=== PATIENT | male | born 1990 | race Caucasian/White ===

== ENCOUNTER 2021-08-14 14:39 | Emergency (ER) | payer OTHER, SELFPAY ==
--- NOTE | ~2021-08-14 | XR_ITS ---
EXAMINATION: XR abdomen obstructive series DATE: 08/14/2021 15:12 INDICATION: Epigastric abdominal pain. TECHNIQUE: Upright and supine views of the abdomen were obtained. COMPARISON: None. FINDINGS: There are no dilated loops of bowel. There is a small volume of stool in the colon. No free intraperitoneal gas. IMPRESSION: 1. Normal bowel gas pattern. Reviewed, dictated and finalized at location A. CIATE SOFTWARE ENGINEER
[2021-08-14 14:50] VITALS: BP 147/56; PULSE 59; RESP 16; TEMP 36.4; O2SAT 99
--- NOTE | 2021-08-14 14:54 | ED.ABDPAIN ---
HPI - Abdominal Pain General Chief Complaint: Abdominal Pain Stated Complaint: Stomach pain Time Seen by Provider: 08/14/21 14:54 Source: patient Mode of arrival: ambulatory Limitations: no limitations History of Present Illness HPI narrative: 31 yo M presents with c/o intermittent epigastric pain for 3 to 4 days. Has tried pepto bismol with no relief. Has been able to eat and drink without pain. states pain is just random . today started while at work so he left and came here. No N/V. Having normal BMs. No urinary complaints. Ambulatory with steady gait. does not appear to be in any distress. All systems reviewed and negative except as noted above. Related Data Allergies Allergy/AdvReac Type Severity Reaction Status Date / Time No Known Allergies Allergy Verified 08/14/21 15:05 Review of Systems Review of Systems: CONSTITUTIONAL: Denies fever, chills, or sweats. EYES: Denies visual changes, redness, or discharge. ENT: Denies rhinorrhea, congestion, sore throat, or otalgia. CARDIOVASCULAR: Denies chest pain, palpitations, or edema. RESPIRATORY: Denies cough or dyspnea. GASTROINTESTINAL: Reports abdominal pain. denies nausea, vomiting, or diarrhea. GENITOURINARY: Denies dysuria or hematuria. SKIN: Denies rash or itching. MUSCULOSKELETAL: Denies back pain, joint pain, or myalgia. NEUROLOGIC: Denies headache, numbness, or weakness. PSYCHIATRIC: Denies anxiety or depression. All other systems reviewed are negative, except as documented in HPI. PMFSH Comments At time of signature, agree with nursing past medical, surgical, social and family history. There is no relevant family history pertinent to the presenting complaint. Exam Narrative: GENERAL: This is a well-nourished, well-developed patient, in no apparent distress. HEAD: normocephalic, atraumatic. EYES: PERRL. Sclera clear/white. Vision is grossly intact. EARS: External ears normal, auditory canals clear and without drainage, TMs normal without perforation. Hearing grossly intact. NOSE: External nose normal with no obvious nasal discharge, nares without redness, no rhinorrhea. THROAT: Mucous membranes moist, posterior pharynx clear. NECK: Neck supple, non-tender without lymphadenopathy, masses or thyromegaly. CARDIOVASCULAR: Regular rate and rhythm without murmurs, gallops, or rubs. RESPIRATORY: Clear to auscultation. Breath sounds equal bilaterally. No wheezes, rales, or rhonchi. GASTROINTESTINAL: Abdomen soft, nondistended. Bowel sounds are active. No hepato-splenomegaly, or palpable masses. No guarding. Epigastric tenderness. No rebound tenderness. SKIN: warm, Dry, intact with no suspicious lesions or rash, good texture and turgor. NEURO: awake, alert, and oriented to person, place and time. There were no obvious focal neurologic abnormalities. EXTREMITIES: No joint tenderness, effusion, or edema noted. No calf tenderness. Negative Homans sign bilaterally. BACK: Nontender without deformity. No CVA tenderness. Course Course Level of Care: Express Care Visit Vital Signs Vital signs: Vital Signs Temperature 36.4 C 08/14/21 14:50 Pulse Rate 59 L 08/14/21 14:50 Respiratory Rate 16 08/14/21 14:50 Blood Pressure 147/56 H 08/14/21 14:50 Pulse Oximetry 99 08/14/21 14:50 Temperature 36.4 C 08/14/21 14:50 Pulse Rate 59 L 08/14/21 14:50 Respiratory Rate 16 08/14/21 14:50 Blood Pressure 147/56 H 08/14/21 14:50 Pulse Oximetry 99 08/14/21 14:50 Reviewed MDM - Abdominal Pain MDM Narrative Medical decision making narrative: Negative UA. Normal ABD series. pt having epigastric tenderness. recommend he transfer to ER for further evaluation. pt states pain really not that bad, not having other symptoms, didnt eat today and maybe just hungry . requesting work note. states he doesnt have time to go to ER today. will DC with precautions to go to to ER for any worsening of symptoms. Imaging Data Attestation: I personally reviewed and interpreted this
== END 2021-08-14 15:35 | disposition home or self-care (01) ==
PROVIDERS: Emergency Provider Nurse Practitioner Family; PCP Internal Medicine Infectious Disease
DX: R10.13 Epigastric pain (principal)
CPT/HCPCS: 74019; 81003; 99213; G0463

== ENCOUNTER 2021-08-14 16:06 | Emergency (ER) | payer OTHER, SELFPAY ==
[2021-08-14] VITALS (13 sets, daily range): BP systolic 117–168; BP diastolic 68–114; PULSE 53–102; RESP 14–18; TEMP 36.6; O2SAT 97–100
--- NOTE | ~2021-08-14 | CT_ITS ---
EXAMINATION: CT abdomen pelvis w con DATE: 08/14/2021 17:38 INDICATION: Right lower quadrant pain for 3 days TECHNIQUE: Computed tomography (CT) of the abdomen and pelvis was performed with 100 cc Omnipaque 350 intravenous contrast. The dose-length product was 1120.21 mGy-cm. Automated exposure control and ite rative reconstruction technique were employed. COMPARISON: None. FINDINGS: Lung bases are unremarkable. Heart size normal. No significant pleural or pericardial effus ion. The liver, spleen, pancreas, adrenal glands and kidneys are unremarkable. No significant vascula r abnormality. No lymphadenopathy. There is segmental thickening of the distal small bowel with mucos al enhancement. There is mild colonic wall thickening of the proximal and transverse colon. No obstru ction. Small amount of free fluid in the pelvis. No free air. No localized fluid collections to sugge st abscess. Normal appendix. There is a urachal remnant of the bladder. IMPRESSION: 1. Mild mucosal thickening with enhancement of the distal small bowel and colon, suspicious for enter ocolitis. No obstruction. Reviewed, dictated and finalized at location A. ELECTRICAL ENGINEER IMPRESSION: 1. Mild mucosal thickening with enhancement of the distal small bowel and colon , suspicious for enterocolitis. No obstruction.
[2021-08-14] MEDS: MORPHINE SULFATE (*CRX) 4 MG/ML INJ IV PUSH (16:55)
[2021-08-14] MEDS: SODIUM CHLORIDE 0.9% IV 1,000 ML 999 ML IV CONT (16:55)
[2021-08-14 16:57] LABS: Basophils Percent Auto 0.2 % (0.2-1.2); Eosinophils Absolute Auto 0.2 K/mm3 (0-0.3); Eosinophils Percent Auto 1.4 % (0-4.4); Hematocrit 48.6 % (42.0-52.0); Immature Granulocyte Absolute 0.04 K/mm3 (0.00-0.031); Immature Granulocyte Percent A 0.4 % (0-0.5); Lymphocytes Absolute Auto 2.16 K/mm3 (0.9-3.2); Lymphocytes Percent Auto 19.7 % (18.3-44.2); Mean Corpuscular HGB Conc 32.9 g/dl (32-36); Mean Corpuscular Hemoglobin 29.9 pg (26-34); Mean Corpuscular Volume 90.7 fl (80-100); Mean Platelet Volume 10.5 fl (7.4-10.4); Monocytes Absolute Auto 0.8 K/mm3 (0.1-0.6); Monocytes Percent Auto 7.3 % (2.6-8.5); Neutrophils Absolute Auto 7.8 K/mm3 (1.3-6.7); Platelet Count Result 211 k/mm3 (150-375); Red Blood Count 5.36 M/mm3 (4.6-6.20); Red Cell Distribution Width 12.8 % (11.5-14.5)
[2021-08-14 17:01] LABS: Glucose Point of Care 99 mg/dl (65-105)
[2021-08-14 17:03] LABS: Alanine Aminotransferase 31 U/L (4-50); Albumin Level 4.3 g/dL (3.5-5.1); Alkaline Phosphatase 75 U/L (38-126); Anion Gap 7 mmol/L (8-16); Aspartate Amino Transferase 31 U/L (17-59); Bilirubin,Total 0.6 mg/dL (0.2-1.3); Blood Urea Nitrogen 14 mg/dL (9-20); Calcium 8.8 mg/dL (8.4-10.2); Carbon Dioxide 29 mmol/L (22-30); Chloride 104 mmol/L (98-107); Estimated CRCL calculation 98 ml/min; Estimated Glomerular Filt Rate > 60; Glucose 96 mg/dL (65-110); Lipase 245 U/L (23-300); Sodium 140 mmol/L (137-145)
[2021-08-14] MEDS: DICYCLOMINE HCL 10 MG CAPSULE 20 MG PO (18:12)
--- NOTE | 2021-08-14 18:19 | ED.ABDPAIN ---
HPI - Abdominal Pain General Chief Complaint: Abdominal Pain Stated Complaint: abd pain from express care Time Seen by Provider: 08/14/21 16:22 History of Present Illness HPI narrative: Patient is a 31-year-old male who presents ER with abdominal pain. Cramping. Located on the right side abdomen. No diarrhea or vomiting. No fevers or chills or sweats. Concerned he could have food poisoning. No alleviating factors. No urinary symptoms. Related Data Allergies Allergy/AdvReac Type Severity Reaction Status Date / Time No Known Allergies Allergy Verified 08/14/21 15:05 Review of Systems Review of Systems: All systems reviewed & are unremarkable except as noted in HPI and below Constitutional: Constitutional: Denies chills, Denies fever(s) and Denies weakness ENT: Denies nasal congestion and Denies sore throat Cardiovascular: Cardiovascular: Denies chest pain, Denies rapid heart rate and Denies radiating jaw, neck or arm pain Respiratory: Respiratory: Denies cough, Denies dyspnea and Denies wheezing Gastrointestinal: Gastrointestinal: Reports abdominal pain, Reports bloating, Denies diarrhea, Denies nausea and Denies vomiting Genitourinary: Genitourinary: Denies dysuria and Denies urinary frequency PMFSH Past Medical History Medical History (Updated 08/14/21 @ 19:24 by Reagan Cruz MD) Healthy adult male Surgical History Surgical History (Updated 08/14/21 @ 19:24 by Reagan Cruz MD) No pertinent past surgical history Social History Social History (Updated 08/14/21 @ 19:24 by Reagan Cruz MD) Smoking status: Never smoker Exam Narrative: GENERAL: Well-appearing, well-nourished, and in no acute distress. HEAD: Normocephalic, atraumatic. EYES: PERRL and EOMI. CHEST: Clear to auscultation. No respiratory distress. HEART: Regular rate and rhythm. Normal peripheral pulses. ABDOMEN: Soft, tender palpation right lower quadrant with guarding, nondistended. EXTREMITIES: Normal range of motion. No edema. SKIN: Warm, dry, no rash. NEURO: Alert and oriented x3. PSYCH: Normal mood and affect. Course Course Emergency Course: Patient resting comfortably. Informed results. Feels improved with Bentyl. Discharge, discussed treatment plan. Vital Signs Vital signs: Vital Signs Temperature 97.9 F 08/14/21 16:09 Pulse Rate 66 08/14/21 16:09 Respiratory Rate 18 08/14/21 16:09 Blood Pressure 161/82 H 08/14/21 16:09 Pulse Oximetry 100 08/14/21 16:09 Temperature 97.9 F 08/14/21 16:09 Pulse Rate 74 08/14/21 19:11 Respiratory Rate 14 08/14/21 19:11 Blood Pressure 136/78 08/14/21 19:11 Pulse Oximetry 98 08/14/21 19:11 MDM - Abdominal Pain Lab Data Result diagrams: 08/14/21 16:36 08/14/21 16:36 Labs: Lab Results 08/14/21 08/14/21 08/14/21 Range/Units 16:36 16:36 16:49 WBC 11.0 H (4.5-10.0) K/mm3 RBC 5.36 (4.6-6.20) M/mm3 Hgb 16.0 (14.0-18.0) g/dL Hct 48.6 (42.0-52.0) % MCV 90.7 (80-100) fl MCH 29.9 (26-34) pg MCHC 32.9 (32-36) g/dl RDW 12.8 (11.5-14.5) % Plt Count 211 (150-375) k/mm3 MPV 10.5 H (7.4-10.4) fl Immature Gran % (Auto) 0.4 (0-0.5) % Neut % (Auto) 71.0 (45.5-73.1) % Lymph % (Auto) 19.7 (18.3-44.2) % [place] % (Auto) 7.3 (2.6-8.5) % Eos % (Auto) 1.4 (0-4.4) % Baso % (Auto) 0.2 (0.2-1.2) % Lymph # (Auto) 2.16 (0.9-3.2) K/mm3 [place] # (Auto) 0.8 H (0.1-0.6) K/mm3 Eos # (Auto) 0.2 (0-0.3) K/mm3 Baso # (Auto) 0.0 (0.0-0.1) K/mm3 Abs Immat Gran (auto) 0.04 H (0.00-0.031) K/mm3 Absolute Neuts (auto) 7.8 H (1.3-6.7) K/mm3 Absolute Nucleated RBC 0.0 (0.0-0.012) K/mm3 Nucleated RBC % 0.0 (0.0-0.2) % Sodium 140 (137-145) mmol/L Potassium 4.0 (3.4-5.0) mmol/L Chloride 104 (98-107) mmol/L Carbon Dioxide 29 (22-30) mmol/L Anion Gap 7 L (8-16) mmol/L BUN 14 (9-20) mg/dL Cre
== END 2021-08-14 19:25 | disposition home or self-care (01) ==
PROVIDERS: Emergency Provider Emergency Medicine; PCP Internal Medicine Infectious Disease
DX: K52.9 Noninfective gastroenteritis and colitis, unspecified (principal)
CPT/HCPCS: 36415; 74019; 74177; 80053; 81003; 82948; 83690; 85025; 96361; 96374; 99284; A9270; J2270; J7030; Q9967

== ENCOUNTER 2023-05-12 16:17 | Emergency (ER) | payer OTHER, SELFPAY ==
--- NOTE | 2023-05-12 16:29 | ED.URI ---
HPI - URI/Sore Throat General Chief Complaint: Upper Respiratory Infection Stated Complaint: SOB/CHEST PAIN Source: patient Mode of arrival: ambulatory Limitations: no limitations History of Present Illness HPI Narrative: 33 y/o male presented for c/o mid chest pain intermittently for 8 months, and shortness of breath intermittently for at least one month. States shortness of breath began after a 'cardiac event' while in the car when he had severe chest pain, fatigue, dizziness, and nausea which lasted about 20 minutes. Symptoms started after eating at a restaurant. He did not seek treatment at that time. States the chest pain and sob can start while at rest, cannot attribute any activity to cause the symptoms. Symptoms are often associated with dizziness and nausea which lead to feeling anxious. Taking otc Primatene mist. Currently denies palpitations, n/v/d/f/c. Smokes 1/2ppd. Family hx father age 33, 'heart stopped.' Related Data Allergies Allergy/AdvReac Type Severity Reaction Status Date / Time No Known Allergies Allergy Verified 08/14/21 15:05 Review of Systems Review of Systems: CONSTITUTIONAL: Denies body aches, fever, chills, or sweats. EYES: Denies visual changes, redness, or discharge. ENT: Denies rhinorrhea, congestion, sore throat, or otalgia. CARDIOVASCULAR: Reports intermittent chest pain, Denies palpitations, or edema. RESPIRATORY: Reports sob, denies cough, wheezing. GASTROINTESTINAL: Denies abdominal pain, nausea, vomiting, or diarrhea. GENITOURINARY: Denies dysuria or hematuria. SKIN: Denies rash, itching, or wounds. MUSCULOSKELETAL: Denies back pain, joint pain, or myalgia. NEUROLOGIC: Denies headache, numbness, tingling, or weakness. All systems reviewed & are unremarkable except as noted in HPI and below PMFSH Past Medical History Medical History (Updated 05/12/23 @ 17:02 by Raya Mendez APRN) Healthy adult male Surgical History Surgical History (Updated 08/14/21 @ 19:24 by Reagan Cruz MD) No pertinent past surgical history Family History Family History (Updated 05/12/23 @ 16:56 by Raya Mendez APRN) Father Heart disease heart stopped while in his sleep at age 33 Mother Liver failure Social History Social History (Updated 05/12/23 @ 16:57 by Raya Mendez, CRM SYSTEM ADMINISTRATOR) Smoking packs per day: 0.5 Smoking cigarettes per day: 10.0 Smoking status: Current every day smoker Tobacco type: cigarettes Comments At time of signature, I have reviewed and agree with nursing past medical, surgical, social and family history unless otherwise noted. Please see nursing chart for further information. There is no relevant family history pertinent to the presenting complaint Exam Narrative: GENERAL: mildly ill-appearing, in no acute distress. EYES: EOMI. No redness or drainage. Conjunctivae normal. ENT: Mucous membranes pink and moist. No rhinorrhea. TMs normal bilaterally. Throat normal. Uvula midline. NECK: Normal AROM. Supple. CHEST: No respiratory distress. lungs clear to all ravi. Nontender chest. HEART: Regular rate and rhythm. No murmur appreciated. ABDOMEN: Soft, nontender, nondistended, normal active bowel sounds. EXTREMITIES: Normal range of motion. No edema. SKIN: Warm, dry, no rash. Capillary refill normal. Normal skin turgor. NEURO: Alert and oriented x3. Gait steady. PSYCH: Normal affect. Course Course Emergency Course: Patient is aware of diagnosis, understands and agrees to treatment plan. Anticipatory guidance given. Patient agrees to follow-up as directed and is aware of reasons to seek care at the emergency department. Portions of this record may have been created with voice recognition software Level of Care: Express Care Visit Transfer Transfered to: [facility] Transportation: Other (Private vehicle) Transfer rationale: Pt is agreeable to transfer. Requests transfer to [facility] via p
[2023-05-12 16:30] VITALS: BP 141/105; PULSE 71; RESP 16; TEMP 36.4; O2SAT 99
== END 2023-05-12 16:55 | disposition short-term general hospital (02) ==
PROVIDERS: Emergency Provider Nurse Practitioner Family; PCP Internal Medicine Infectious Disease
DX: R06.02 Shortness of breath (principal); R07.9 Chest pain, unspecified; F17.210 Nicotine dependence, cigarettes, uncomplicated
CPT/HCPCS: 99212; G0463

== ENCOUNTER 2023-05-12 17:15 | Observation (INO) | payer OTHER, SELFPAY ==
--- NOTE | ~2023-05-12 | NM_ITS ---
EXAMINATION: NM stress w perf spect multi DATE: 05/14/2023 08:56 INDICATION: Chest pain. TECHNIQUE: Rest images were obtained following intravenous administration of 10.5 mCi Tc99m tetrofosm in (Myoview). The patient performed an exercise activity. At peak exercise, 32.9 mCi Tc99m tetrofosmi n (Myoview) was administered intravenously, and stress images were obtained. Data was reconstructed i nto short axis and horizontal and vertical long axis SPECT images. Gated SPECT images were also obtai barbi. COMPARISON: Chest CT 05/12/2023 FINDINGS: There is no definite reversible or fixed perfusion abnormality to suggest ischemia or infar ction. There is no segmental wall motion abnormality. Left ventricular ejection fraction measures 6 7%. IMPRESSION: 1. No definite ischemia or infarct. 2. Normal left ventricular ejection fraction measuring 67%. Reviewed, dictated and finalized at location A. LACKER
--- NOTE | ~2023-05-12 | CT_ITS ---
EXAMINATION: CTA chest PE protocol DATE: 05/12/2023 18:32 INDICATION: chest pain, dyspnea TECHNIQUE: Computed tomography angiography (CTA) of the chest was performed with 100 mL Omnipaque-350 intravenous contrast timed to evaluate the pulmonary arteries. Coronal maximum intensity projection 3D-reconstructions were created by the technologist. The dose-length product (DLP) was 535.50 mGy-cm. Automated exposure control and iterative reconstruction technique were employed. COMPARISON: None. FINDINGS: Lung parenchyma and airways: Clear. Pleura: Unremarkable. Thoracic inlet, axillae and chest wall: 3.6 cm right thyroid mass. Thoracic aorta: Normal. Mediastinum: Normal. Heart and pericardium: Mildly enlarged heart. Coronary artery calcifications: Absent. Upper abdomen: No significant finding. Bones: No acute osseous finding. Pulmonary arteries: Study quality: Adequate. No pulmonary emboli detected. IMPRESSION: No CT evidence of acute pulmonary embolus. No acute intrathoracic process detected. Mild cardiomegaly. 3.6 cm right thyroid mass, recommend outpatient thyroid ultrasound for further characterization Reviewed, dictated and finalized at location K. SLINGER
--- NOTE | ~2023-05-12 | XR_ITS ---
EXAMINATION: XR chest 2V DATE: 05/12/2023 17:30 INDICATION: Chest pain. Shortness of breath. TECHNIQUE: Frontal and lateral views of the chest were obtained. COMPARISON: CT abdomen and pelvis 08/14/2021 FINDINGS: There is no pneumonia, pleural effusion, or pneumothorax. The heart size is normal. IMPRESSION: 1. No acute cardiopulmonary disease. Reviewed, dictated and finalized at location A. BARBECUE
[2023-05-12 17:16] VITALS: BP 158/87; PULSE 76; RESP 20; TEMP 36.7; O2SAT 99
--- NOTE | 2023-05-12 17:20 | ECG_ITS ---
Measurements Intervals [place] Rate: 73 P: 10 SC: 179 QRS: 18 QRSD: 89 T: 27 QT: 360 QTc: 398 Interpretive Statements SINUS RHYTHM NORMAL ECG NO PREVIOUS ECG AVAILABLE FOR COMPARISON Electronically Signed On 05-13-2023 6:12:16 [employer] 1 THRU 6 HOME TEACHER by Alejandro Brown D.O.
[2023-05-12 17:43] LABS: Basophils Percent Auto 0.5 % (0.2-1.2); Eosinophils Absolute Auto 0.2 K/mm3 (0-0.3); Eosinophils Percent Auto 2.6 % (0-4.4); Hematocrit 47.4 % (42.0-52.0); Hemoglobin 15.2 g/dL (14.0-18.0); Immature Granulocyte Absolute 0.03 K/mm3 (0.00-0.031); Immature Granulocyte Percent A 0.4 % (0-0.5); Lymphocytes Percent Auto 37.1 % (18.3-44.2); Mean Corpuscular HGB Conc 32.1 g/dl (32-36); Mean Corpuscular Volume 90.5 fl (80-100); Mean Platelet Volume 10.4 fl (7.4-10.4); Monocytes Absolute Auto 0.8 K/mm3 (0.1-0.6); Monocytes Percent Auto 9.8 % (2.6-8.5); Neutrophils Absolute Auto 3.9 K/mm3 (1.3-6.7); Neutrophils Percent Auto 49.6 % (45.5-73.1); Platelet Count Result 271 k/mm3 (150-375); Red Blood Count 5.24 M/mm3 (4.6-6.20); Red Cell Distribution Width 12.8 % (11.5-14.5); White Blood Count 7.8 K/mm3 (4.5-10.0)
[2023-05-12 17:53] LABS: Alanine Aminotransferase 35 U/L (6-50); Albumin Level 4.5 g/dL (3.5-5.1); Alkaline Phosphatase 78 U/L (38-126); Anion Gap 10 mmol/L (8-16); Aspartate Amino Transferase 36 U/L (17-59); Bilirubin,Total 0.9 mg/dL (0.2-1.3); Blood Urea Nitrogen 10 mg/dL (9-20); Calcium 9.1 mg/dL (8.4-10.2); Carbon Dioxide 29 mmol/L (22-30); Chloride 104 mmol/L (98-107); Estimated CRCL calculation 134 ml/min; Estimated Glomerular Filt Rate > 60; Glucose 94 mg/dL (65-110); Lipase 48 U/L (23-300); Potassium 3.8 mmol/L (3.4-5.0); Sodium 143 mmol/L (137-145)
[2023-05-12 17:54] LABS: Partial Thromboplastin Time 25.8 SECONDS (22.3-36.8); Prothrombin Time 13.6 Seconds (11.1-14.7)
[2023-05-12 18:11] LABS: Troponin I 0.037 ng/mL (0.000-0.034)
--- NOTE | 2023-05-12 18:29 | ED.SOB ---
HPI - SOB/Dyspnea General Chief Complaint: Shortness of Breath/Dyspnea Stated Complaint: sob Time Seen by Provider: 05/12/23 18:09 History of Present Illness HPI Narrative: 33-year-old male with a reported history of hypertension who is not medicated reports for evaluation for intermittent chest pain for the past 8 months and shortness of breath for the past 2 weeks. Patient states he has chest pain that can occur anytime of the day, whether he be lying down or exerting himself. He states approximately 2 weeks ago, he was getting into his car after eating at a restaurant when he experienced chest pain, diaphoresis, nausea for approximately 15 minutes. States his symptoms resolved and he felt sluggish afterwards. He never sought medical attention for this. He describes it as a cardiac event . He does report a cough that is unchanged from his smoker's cough. He smokes half a pack a day for the past 15 years. He notes that his father had heart attack in his sleep when he was 34 years old. He denies lower extremity edema, current chest pain, abdominal pain, nausea, vomiting, diarrhea, urinary complaints. Related Data Allergies Allergy/AdvReac Type Severity Reaction Status Date / Time No Known Allergies Allergy Verified 08/14/21 15:05 Review of Systems Review of Systems: CONSTITUTIONAL: Denies fever, chills, or sweats. EYES: Denies visual changes, redness, or discharge. ENT: Denies rhinorrhea, congestion, sore throat, or otalgia. CARDIOVASCULAR: See HPI. RESPIRATORY: see HPI GASTROINTESTINAL: Denies abdominal pain, nausea, vomiting, or diarrhea. GENITOURINARY: Denies dysuria or hematuria. SKIN: Denies rash or itching. MUSCULOSKELETAL: Denies back pain, joint pain, or myalgia. NEUROLOGIC: Denies headache, numbness, or weakness. PSYCHIATRIC: Denies anxiety or depression. [facility] Past Medical History Medical History Healthy adult male Surgical History Surgical History No pertinent past surgical history Family History Family History Father Heart disease heart stopped while in his sleep at age 33 Mother Liver failure Social History Social History Smoking packs per day: 0.5 Smoking cigarettes per day: 10.0 Smoking status: Current every day smoker Tobacco type: cigarettes Exam Narrative: GENERAL: Well-appearing, well-nourished, and in no acute distress. patient resting comfortably in exam bed. He is pleasant and conversational. He is satting 100% on room air and speaking in full sentences. HEAD: Normocephalic, atraumatic. EYES: PERRLA and EOMI. ENT: Nares clear, no rhinorrhea or epistaxis. Mucous membranes moist. NECK: Supple. CHEST: Clear to auscultation. No respiratory distress. Decreased breath sounds in the lower lung ravi. HEART: Regular rate and rhythm. No murmur heard. Normal peripheral pulses. ABDOMEN: Soft, nontender, nondistended, normal active bowel sounds. EXTREMITIES: Normal range of motion. No edema. SKIN: Warm, dry, no rash. NEURO: No focal deficits. Alert and oriented x3 Course Vital Signs Vital signs: Vital Signs Temperature 98.1 F 05/12/23 17:16 Pulse Rate 76 05/12/23 17:16 Respiratory Rate 20 05/12/23 17:16 Blood Pressure 158/87 H 05/12/23 17:16 Pulse Oximetry 99 05/12/23 17:16 Oxygen Delivery Room Air 05/12/23 17:16 Temperature 98.1 F 05/12/23 17:16 Pulse Rate 68 05/12/23 19:49 Respiratory Rate 8 L 05/12/23 19:49 Blood Pressure 136/96 H 05/12/23 18:57 Pulse Oximetry 97 05/12/23 19:15 Oxygen Delivery Room Air 05/12/23 19:15 MDM - SOB/Dyspnea MDM Narrative Medical decision making narrative: 33-year-old male reports for evaluation for intermittent chest pain
[2023-05-12 18:54] LABS: NT Pro B Type Natriuretic Pept 72 pg/mL (19.9-100)
[2023-05-12 18:57] VITALS: BP 136/96; PULSE 71; RESP 16; O2SAT 95
[2023-05-12 19:15] VITALS: PULSE 65; O2SAT 97
[2023-05-12 19:45] LABS: Appearance Urine Clear (Clear); Bilirubin Urine Negative (Negative); Blood Urine Negative (Negative); Color Urine Yellow (Yellow); Glucose Urine UA Negative (Negative); Ketones Urine Negative (Negative); Leukocyte Esterase Ur Negative LEU/UL (Negative); Nitrate Urine Negative (Negative); Protein Urine Negative (Negative); Urobilinogen Urine 0.2 mg/dL (<2.0); pH Urine 7.5 (5.0-9.0)
[2023-05-12 19:48] LABS: Add Urine Microscopic? NO; Specific Grav Ur 1.077 (1.001-1.035)
[2023-05-12] MEDS: IPRATROPIUM BR 0.02% INH SOLN 0.5 MG/2.5 ML VIAL INHALATION (19:48)
[2023-05-12] MEDS: ALBUTEROL SULFATE NEB 2.5 MG/3 ML INH INHALATION (19:48)
[2023-05-12 19:49] VITALS: PULSE 68; RESP 8
[2023-05-12 20:07] VITALS: BP 138/95; PULSE 76; RESP 18; O2SAT 97
[2023-05-12 20:46] LABS: Troponin I 0.036 ng/mL (0.000-0.034)
--- NOTE | 2023-05-12 22:46 | PM.IMHP ---
H&P: HPI History of Present Illness Date/Time: 05/12/23 22:46 Chief Complaint: Shortness of breath after a ?cardiac event? Narrative: 33-year-old male with a past medical history of essential hypertension, obesity and tobacco abuse who presented to the ER via private vehicle with his filindae due to shortness of breath and recent report of ?cardiac event?. The patient reports that he had been having some slight shortness of breath pretty persistently for 2 or 3 months. However 2 or 3 weeks ago he he and his fiancee were out to dinner at which time he had a fatty meal. When they got out to the car patient suddenly had substernal chest pain, severe shortness of breath, and felt so lightheaded that he may pass out. The girlfriend reports that he was overtly diaphoretic and she had trouble keeping him awake for a couple of minutes. The entire episode of pain lasted 15-20 minutes and then resolved. She was driving him to the hospital when the patient felt significantly better and then refused to go to the ER. However since that event the patient has had significant shortness of breath and that is worse with activity. He is also have associated orthopnea and is felt panicked when he tries to go to sleep at night. He has not had any recurrence of chest pain. He did have 3 days of pretty persistent right jaw pain 3 or 4 days ago but this has since resolved. He is soon to was due to an ear infection. He has had any changes in his hearing. He has not had any recurrence of chest pain or shortness of breath. He denies any palpitations. He has not had any fevers or chills. He has not had any significant cough or congestion. In the ER EKG demonstrated normal sinus rhythm. Initial troponin was minimally elevated and repeat troponin was flat. Patient was noted decreased breath sounds bilaterally and with his history of smoking it was suspected he may have previously undiagnosed COPD was given a nebulizer treatment. Review of Systems Review of Systems: 12 systems were reviewed with pertinent positives and negatives per HPI. Except as documented in the HPI, all other systems were reviewed and are negative. [facility] Past Medical History Medical History (Updated 05/12/23 @ 22:53 by Syeda Alfaro DO) Chronic lower back pain Chronic mid back pain Patient reports bulging discs Continuous tobacco abuse Essential hypertension Obesity (BMI 30.0-34.9) Surgical History Surgical History No pertinent past surgical history Family History Family History (Updated 05/12/23 @ 22:54 by Syeda Alfaro DO) Father Sudden cardiac , Onset Age: 33 Mother Alcoholic cirrhosis Social History Social History (Updated 05/12/23 @ 23:00 by Syeda Alfaro DO) Social History: The patient is living with his Barbie sosa. He has 3 children ages 5, 8 and 9 years old. 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 He has smoked 0.5 packs of cigarettes per day since his young teens. He denies any significant alcohol use. He does use marijuana on occasion. Code status: Full code Surrogate decision maker: Barbie arias) Smoking packs per day: 0.5 Smoking cigarettes per day: 10.0 Years smoked: 15 Smoking pack-years: 7.50 Smoking status: Current every day smoker Tobacco type: cigarettes Alcohol intake: never Substance use: current Substance use type: marijuana Comments He reports that he has multiple half siblings but he is not in contact with them and has no idea their medical history. Meds Home Medications and Allergies Allergies Allergy/AdvReac Type Severity Reaction Status Date / Time No Known Allergies Allergy Verified 08/14/21 15:05 Vital Signs Vital Signs - 24 hr 05/12/23 17:16 05/12/23 18:10 05/12/23 18:57 Temperature 98.1 F Pulse Rate 76 71 Respiratory Rate 20 16 Blood Pressure 158/87 H
[2023-05-13] VITALS (11 sets, daily range): BP systolic 101–144; BP diastolic 61–85; PULSE 53–78; RESP 12–19; TEMP 36.3–36.6; O2SAT 95–99; BMI 33.5
--- NOTE | 2023-05-13 | EST_ITS ---
Patient Info Name: Eugenio Gleason Age: 33 years : 1990 Gender: Male Ht: 72 in Wt: 246 lbs BSA: 2.41 m2 HR: 66 bpm BP: 136 / 92 mmHg Heart Rhythm: Sinus Rhythm Exam Date: 05/13/2023 1:27 PM Exam Location: Echo Lab Patient Status: Inpatient Admit Date: 05/12/2023 Staff Ordering Physician: Ayan Carrasco MD Attending Provider: Syeda Alfaro DO Exercise Technologist: Yoselin Turner CT Exercise Physician: Ayan Carrasco MD Exam Type: CA stress test treadmill w NM Study Info Indications R07.9 - Chest pain, unspecified An exercise stress test was performed. Summary 1. Exercise capacity very good at >10 METS. 2. No abnormal ST/T wave changes diagnostic of ischemia with exercise. 3. Stress test supervised and interpreted by Ayan Carrasco MD. 4. Please correlate with nuclear medicine images, reported separately. Protocol: Adal Stress ECG Details Stage: REST Duration (min): 0 min : 55 sec Speed (mph): 0.0 Grade (%): 0 HR (bpm): 67 SBP (mmHg): 136 DBP (mmHg): 92 METS: --- Stage: REST Duration (min): 8 min : 48 sec Speed (mph): 0.0 Grade (%): 0 HR (bpm): 70 SBP (mmHg): 136 DBP (mmHg): 92 METS: --- Stage: STAGE 1 Duration (min): 1 min : 0 sec Speed (mph): 1.7 Grade (%): 10 HR (bpm): 103 SBP (mmHg): 136 DBP (mmHg): 92 METS: --- Stage: STAGE 1 Duration (min): 2 min : 0 sec Speed (mph): 1.7 Grade (%): 10 HR (bpm): 109 SBP (mmHg): 136 DBP (mmHg): 92 METS: --- Stage: STAGE 1 Duration (min): 3 min : 0 sec Speed (mph): 1.7 Grade (%): 10 HR (bpm): 109 SBP (mmHg): 150 DBP (mmHg): 82 METS: --- Stage: STAGE 2 Duration (min): 1 min : 0 sec Speed (mph): 2.5 Grade (%): 12 HR (bpm): 119 SBP (mmHg): 150 DBP (mmHg): 82 METS: --- Stage: STAGE 2 Duration (min): 2 min : 0 sec Speed (mph): 2.5 Grade (%): 12 HR (bpm): 134 SBP (mmHg): 173 DBP (mmHg): 80 METS: --- Stage: STAGE 2 Duration (min): 3 min : 0 sec Speed (mph): 2.5 Grade (%): 12 HR (bpm): 131 SBP (mmHg): 173 DBP (mmHg): 80 METS: --- Stage: STAGE 3 Duration (min): 1 min : 0 sec Speed (mph): 3.4 Grade (%): 14 HR (bpm): 159 SBP (mmHg): 170 DBP (mmHg): 79 METS: --- Stage: STAGE 3 Duration (min): 2 min : 0 sec Speed (mph): 3.4 Grade (%): 14 HR (bpm): 168 SBP (mmHg): 170 DBP (mmHg): 79 METS: --- Stage: STAGE 3 Duration (min): 2 min : 14 sec Speed (mph): 3.4 Grade (%): 14 HR (bpm): 169 SBP (mmHg): 170 DBP (mmHg): 79 METS: --- Stage: RECOVERY Duration (min): 0 min : 45 sec Speed (mph): 0.0 Grade (%): 0 HR (bpm): 146 SBP (mmHg): 175 DBP (mmHg): 68 METS: --- Stage: RECOVERY Duration (min): 1 min : 45 sec Speed (mph): 0.0 Grade (%): 0 HR (bpm): 103 SBP (mmHg): 175 DBP (mmHg): 68 METS: --- Stage: RECOVERY Duration (min):
--- NOTE | 2023-05-13 | ECHO_ITS ---
Patient Info Name: Eugenio Gleason Age: 33 years : 1990 Gender: Male Ht: 72 in Wt: 250 lbs BSA: 2.44 m2 HR: 57 bpm BP: 144 / 74 mmHg Heart Rhythm: Sinus Rhythm Technical Quality: Fair Exam Date: 05/13/2023 10:34 AM Exam Location: Echo Lab Exam Room: 210 Patient Status: Inpatient Admit Date: 05/12/2023 Staff Ordering Physician: Syeda Alfaro DO Grain Farmer: Yoselin Ray RDCS Attending Provider: Syeda Alfaro DO Referring Physician: Dominic RONQUILLO; Exam Type: CA echo doppler color flow Study Info Indications - cardiomegaly chest pain Complete two-dimensional, color flow and Doppler transthoracic echocardiogram is performed. Summary 1. Complete two-dimensional, color flow and Doppler transthoracic echocardiogram is performed. 2. Left ventricular chamber dimension is normal. 3. Left ventricular systolic function is normal, estimated at 60-65%. 4. The left ventricular diastolic function is grade I diastolic dysfunction. 5. Right ventricular systolic function is normal. 6. There is trace mitral valve regurgitation. 7. There is trace tricuspid valve regurgitation. 8. There is trace pulmonic regurgitation. Left Ventricle Left ventricular chamber dimension is normal. Left ventricular systolic function is normal, estimated at 60-65%. There is no increased left ventricular wall thickness. The left ventricular diastolic function is grade I diastolic dysfunction. Right Ventricle Right ventricular chamber dimension is normal. Right ventricular systolic function is normal. Left Atria Left atrial chamber dimension is normal. Right Atria Right atrial chamber dimension is normal. Atrial Septum Intact interatrial septum visualized by color flow imaging. Aortic Valve The aortic valve is probable trileaflet. There is no aortic valve stenosis. There is no aortic valve regurgitation. Pulmonic Valve The pulmonic valve is not well visualized. There is trace pulmonic regurgitation. Mitral Valve There is trace mitral valve regurgitation. Tricuspid Valve There is trace tricuspid valve regurgitation. Pericardium/Pleural There is no pericardial effusion. Inferior Vena Cava Normal inferior vena cava with >50% collapse upon inspiration consistent with normal right atrial pressure, 3 mmHg. Aorta The aortic root size at the sinus of Valsalva is normal. Left Ventricular Outflow Tract Name Value Normal LVOT 2D LVOT Diameter 2.1 cm LVOT Doppler LVOT Peak Gradient 4 mmHg LVOT Mean Gradient 2 mmHg LVOT VTI 22 cm LVOT VTI/AV VTI Ratio 0.9 LVOT Stroke Volume 78 ml LVOT CO 15.7 l/min LVOT CI 6.4 l/min/m2 Pulmonic Valve Name Value Normal RVOT Doppler RVOT Peak Gradient 2 mmHg PV Dopple
[2023-05-13 00:38] LABS: Troponin I 0.035 ng/mL (0.000-0.034)
--- NOTE | 2023-05-13 03:30 | ADMGEN ---
This patient, Eugenio Gleason, was admitted to IMU Room 210-01. Patient/family oriented to hospital policies and general routines including ID bracelet, bed and alarms, visiting hours, pain management, procedures, bathroom and other care routines, personal items, smoking policy, room service/diet, and visiting hours. Information on how to activate the Rapid Response Team has been discussed. Patient/Family are encouraged to report perceived risks to care and to ask questions if they do not understand what they are told or what they should do.
[2023-05-13 06:11] LABS: Cholesterol 151 mg/dL (0-200); HDL Direct 36 mg/dL; Triglycerides 123 mg/dL (<150)
[2023-05-13 06:21] LABS: LDL Cholesterol Direct 91 mg/dL
[2023-05-13] MEDS: ASPIRIN 81 MG ENTERIC TABLET PO (09:45)
--- NOTE | 2023-05-13 10:10 | PM.CNCAR ---
Assessment and Plan Assessment and plan (1) Chest pain: Qualifiers: Chest pain type: unspecified Qualified Code(s): R07.9 - Chest pain, unspecified Code(s): R07.9 - Chest pain, unspecified Status: Acute Assessment and Plan: Patient states that 2 weeks ago, after having dinner, patient had sudden onset of chest pain, shortness of breath, lightheadedness. Occurred about 15-20 minutes after eating. Lasted for about 15 minutes or so and self-resolved. Has been having intermittent atypical shortness of breath since that episode. Workup shows flat troponin of 0.037, 0.036, 0.035 (upper limit of normal is 0.034). CTA Chest shows mild cardiomegaly, no coronary artery calcifications, no evidence of PE. EKG with sinus rhythm, otherwise normal EKG. Echocardiogram has been ordered and pending. Given his symptoms, risk factors for heart disease, and the workup as noted above, I did discuss stress testing vs coronary angiography with the patient. Discussed procedure details for both tests, risks/benefits, etc. Patient prefers non-invasive method at this time with stress testing. Will obtain treadmill nuclear stress test. I did discuss with the patient that if the stress test is abnormal, then next steps would be to proceed with coronary angiography, which he is agreeable to. (2) Elevated troponin: Code(s): R79.89 - Other specified abnormal findings of blood chemistry Status: Acute Assessment and Plan: As above. (3) Essential hypertension: Code(s): I10 - Essential (primary) hypertension Status: Acute Assessment and Plan: Elevated. Will start low-dose Lisinopril. (4) Continuous tobacco abuse: Code(s): Z72.0 - Tobacco use Status: Acute Assessment and Plan: Discussed smoking cessation with the patient. Offered nicotine patches, however, patient declines at this time. History of Present Illness History of Present Illness Consult date/time: 05/13/23 10:10 Requesting physician: Syeda Alfaro DO Consult reason: chest pain Reason For Visit: Chest Pain/Elevated Troponin Narrative: We are consulted for chest pain. This is a 33 year old male with tobacco dependence, hypertension (not on medication) who presented with shortness of breath. Patient reports that he has been having intermittent brief shortness of breath that occurs randomly, sometimes with exertion. This has been occurring for the past 2 weeks, since an episode of what he calls a cardiac event . Patient states that 2 weeks ago, after having dinner, patient had sudden onset of chest pain, shortness of breath, lightheaded. Occurred about 15-20 minutes after eating. Lasted for about 15 minutes or so and self-resolved. He did not see medical care at that time. Patient states that his father in his 30s -- was told that his heart had stopped. ER workup showed troponin of 0.037, 0.036, 0.035 (upper limit of normal is 0.034). CTA Chest shows mild cardiomegaly, no coronary artery calcifications, no evidence of PE, 3.6cm right thyroid mass. EKG with sinus rhythm, otherwise normal EKG. Review of Systems Review of Systems: All systems reviewed & are unremarkable except as noted in HPI and below (HPI) [facility] Past Medical History Medical History Chronic lower back pain Chronic mid back pain Patient reports bulging discs Continuous tobacco abuse Essential hypertension Obesity (BMI 30.0-34.9) Surgical History Surgical History No pertinent past surgical history Family History Family History Father Sudden cardiac , Onset Age: 33 Mother Alcoholic cirrhosis Social History Social History Social History: The patient is living with his Barbie sosa. He has 3 children ages 5, 8
[2023-05-13] MEDS: lisinopriL 10 MG TABLET PO (11:30)
--- NOTE | 2023-05-13 16:17 | PM.DS ---
DS: Admitting Diagnosis Discharge Date 05/13/23 Admitting Diagnosis chest pain DS: Discharge Diagnosis Discharge Diagnosis (1) Essential hypertension: Code(s): I10 - Essential (primary) hypertension Status: Acute (2) Continuous tobacco abuse: Code(s): Z72.0 - Tobacco use Status: Acute (3) Chest pain: Qualifiers: Chest pain type: unspecified Qualified Code(s): R07.9 - Chest pain, unspecified Code(s): R07.9 - Chest pain, unspecified Status: Acute (4) Thyroid mass: Code(s): E07.9 - Disorder of thyroid, unspecified Status: Acute DS: Summary Hospital Course Hospital Course: 33M w/ PMH HTN, obesity, tobacco abuse presented with report of cardiac event . He reported shortness of breath, lightheadedness, and chest pain about 15-20 minutes after eating. It self resolved. Troponins were only mildly elevated at .036 then .035. He underwent NM stress test which was unremarkable for cardiac disease. He is stable for discharge to home on 05/13, chest pain free. He will be dc'ed on aspirin for primary prevention as well as lisinopril 10mg po qday. He knows to follow up with his PCP within 2 weeks to manage these issues. He also knows to request outpatient thyroid ultrasound with PCP for 3.6cm right thyroid nodule. He declines any assistance in smoking cessation but was counseled and acknowledged the risks. More than 30 minutes spent on discharge planning and documentation. Time Spent with Patient Time attestation: Total time spent providing and/or coordinating discharge services: Exam Const: General: cooperative and no acute distress Resp: Effort & Inspection: normal respiratory effort Auscultation: clear to auscultation bilaterally Cardio: Rate: regular rate Rhythm: regular rhythm Heart sounds: S1 normal heart sound present and S2 normal heart sound present GI: GI Palp: No abdominal tenderness Auscultation: normal bowel sounds DS: Data Data Completed and Pending Labs on day of discharge: Labs from last 24 hours 05/12/23 05/12/23 05/12/23 23:48 20:10 19:33 WBC RBC Hgb Hct MCV MCH MCHC RDW Plt Count MPV Immature Gran % (Auto) Neut % (Auto) Lymph % (Auto) [place] % (Auto) Eos % (Auto) Baso % (Auto) Lymph # (Auto) [place] # (Auto) Eos # (Auto) Baso # (Auto) Abs Immat Gran (auto) Absolute Neuts (auto) Absolute Nucleated RBC Nucleated RBC % PT INR APTT Sodium Potassium Chloride Carbon Dioxide Anion Gap BUN Creatinine Estim Creat Clear Calc Estimated GFR Glucose Calcium Total Bilirubin AST ALT Alkaline Phosphatase Troponin I 0.035 H 0.036 H* NT-Pro-B Natriuret Pep Total Protein Albumin Triglycerides 123 Cholesterol 151 LDL Cholesterol Direct 91 HDL Direct 36 Lipase TSH (Reflex) 2.570 Urine Color Yellow Urine Appearance Clear Urine pH 7.5 Ur Specific [place] 1.077 H Urine Protein Negative Urine Glucose (UA) Negative Urine Ketones Negative Ur Blood (Man) Negative Urine Nitrate Negative Urine Bilirubin Negative Urine Urobilinogen 0.2 Leukocyte Esterase Rfl Negative 05/12/23 17:34 WBC 7.8 RBC 5.24 Hgb 15.2 Hct 47.4 MCV 90.5 MCH 29.0 MCHC 32.1 RDW 12.8 Plt Count 271 MPV 10.4 Immature Gran % (Auto) 0.4 Neut % (Auto) 49.6 Lymph % (Auto) 37.1 [place] % (Auto) 9.8 H Eos % (Auto) 2.6 Baso % (Auto) 0.5 Lymph # (Auto) 2.90 [place] # (Auto) 0.8 H Eos # (Auto) 0.2 Baso # (Auto) 0.0 Abs Immat Gran (auto) 0.03 Absolute Neuts (auto) 3.9 Absolute Nucleated RBC 0.0 Nucleated RBC % 0.0 PT 13.6 INR 1.0 APTT 25.8 Sodium 143 Potassium 3.8 Chloride 104 Carbon Dioxide 29 Anion Gap 10 BUN 10 Creatinine 0.90 Estim Creat Clear Calc 134 Estimated GFR > 60 Glucose 94 Calcium 9.1 Total Bilirubin 0.9 AST 3
== END 2023-05-13 18:04 | disposition home or self-care (01) ==
LOC: ANHED 22:01 → ANHIMU 05-13 05:17
PROVIDERS: Emergency Medicine; Admitting Provider Internal Medicine; Emergency Provider Physician Assistant; PCP Internal Medicine Infectious Disease; Visit Provider General Practice
DX: R07.9 Chest pain, unspecified (principal); R06.00 Dyspnea, unspecified; R79.89 Other specified abnormal findings of blood chemistry; R06.01 Orthopnea; R06.83 Snoring; I11.9 Hypertensive heart disease without heart failure; I51.89 Other ill-defined heart diseases; E07.9 Disorder of thyroid, unspecified; R77.8 Other specified abnormalities of plasma proteins; R05.9 Cough, unspecified; E66.9 Obesity, unspecified; Z68.33 Body mass index [BMI] 33.0-33.9, adult; F17.210 Nicotine dependence, cigarettes, uncomplicated; F12.90 Cannabis use, unspecified, uncomplicated; G89.29 Other chronic pain; M54.50 Low back pain, unspecified; M54.9 Dorsalgia, unspecified; Z82.49 Family history of ischemic heart disease and other diseases of the circulatory system
CPT/HCPCS: 36415; 71046; 71275; 78452; 80053; 80061; 81003; 83690; 83880; 84443; 84484; 85025; 85610; 85730; 93005; 93017; 93306; 94640; 99212; 99285; A9270; A9502; G0378; G0379; G0463; Q9967

== ENCOUNTER 2024-08-24 10:36 | Outpatient (CLI) | payer OTHER, SELFPAY ==
--- NOTE | ~2024-08-24 | US_ITS ---
EXAMINATION: US thyroid DATE: 08/24/2024 11:08 INDICATION: TECHNIQUE: Multiple ultrasound images of the thyroid were obtained. COMPARISON: None. FINDINGS: The right thyroid lobe measures 5.2 x 2.7 x 3.2 cm. Within the right lobe of the thyroid gland is a 2.4 x 2.9 x 4.5 cm nodule: Composition -mixed cystic and solid (1) Echogenicity - hypoechoic (2) Shape - wider than tall Margin - smooth Echogenic foci - none. = TR3 Mildly suspicious Greater than or equal to 1.5 cm: Follow-up Greater than or equal to 2.5 cm: FNA The left thyroid lobe measures 4.2 x 1.2 x 1.4 cm. The isthmus measures 0.28cm in anterior to posterior dimension. There is otherwise normal echotexture and echogenicity throughout the remainder of the thyroid gland. No additional discrete nodules identified. IMPRESSION: TR3 nodule in the right lobe of the thyroid gland measuring 4.5 cm in greatest dimension. This nodule is sonographically only mildly suspicious, but based on size and sonographic characterist ics, FNA is recommended. Reviewed, dictated and finalized at location A. IMPRESSION: TR3 nodule in the right lobe of the thyroid gland measuring 4.5 cm in greatest dimension. This nodule is sonographically only mildly suspicious, but based on size and so nographic characteristics, FNA is recommended.
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
== END 2024-08-24 10:37 | disposition home or self-care (01) ==
PROVIDERS: PCP Family Medicine; Visit Provider Family Medicine
DX: E04.1 Nontoxic single thyroid nodule (principal)
CPT/HCPCS: 76536

== ENCOUNTER 2025-05-02 21:30 | Emergency (ER) | payer OTHER, SELFPAY ==
--- NOTE | ~2025-05-02 | CT_ITS ---
EXAMINATION: CT abdomen pelvis w con DATE: 05/03/2025 00:32 INDICATION: Generalized abdominal pain. Blood in stool. TECHNIQUE: Computed tomography (CT) of the abdomen and pelvis was performed with 100 mL Omnipaque 350 intravenous contrast. Automated exposure control and iterative reconstruction technique were employed. The dose-length product was 1678.60 mGy-cm. COMPARISON: CT abdomen and pelvis 08/14/2021 FINDINGS: The visualized portions of the lung bases demonstrate mild atelectasis. No pleural effusion. The heart size is normal. No pericardial effusion. The liver, gallbladder, spleen, pancreas, and adrenal glands are normal. There are cysts in the kidneys measuring up to 6 mm on the right. There are bilateral inguinal hernias containing fat. There is diverticulosis of the colon without evidence of diverticulitis. The appendix is normal. There are no dilated loops of bowel. There are no pathologically enlarged lymph nodes. There is trace ascites. There is mild thoracic and lumbar spondylosis. There are chronic bilateral L5 pars defects. IMPRESSION: 1. Trace ascites again seen. 2. Bilateral inguinal hernias containing fat. Reviewed, dictated and finalized at location E. [employer]
[2025-05-02 21:37] VITALS: BP 147/108; PULSE 97; RESP 20; TEMP 36.3; O2SAT 98
--- NOTE | 2025-05-03 00:02 | ED.ABDPAIN ---
HPI - Abdominal Pain General Chief Complaint: Abdominal Pain <Janneth Rose APRN - Last Filed: 05/03/25 03:47> Stated Complaint: abd pain x1 day <Janneth Rose APRN - Last Filed: 05/03/25 03:47> Time Seen by Provider: 05/02/25 23:03 <Janneth Rose APRN - Last Filed: 05/03/25 03:47> History of Present Illness HPI narrative: Patient is a 35-year-old male who presents to the ER with abdominal pain that started yesterday. He reports he has had nausea, urinary burning/urgency, and intermittent bright red rectal bleeding. Patient reports he has been taking ibuprofen as needed for pain but it has not been helping. He reports his last bowel movement was yesterday and it was normal for him. Patient endorses a history of chronic back pain. He denies any recent alcohol use but endorses daily marijuana use. Patient reports he has a history of abdominal pain but diverticulitis has been ruled out in the past. He denies any recent fevers, chest pain, or constipation. <Janneth Rose APRN - Last Filed: 05/03/25 03:47> Related Data Allergies/Adverse Reactions: Allergies Allergy/AdvReac Type Severity Reaction Status Date / Time No Known Allergies Allergy Verified 05/02/25 21:39 <Janneth Rose APRN - Last Filed: 05/03/25 03:47> Review of Systems Review of Systems: All systems reviewed & are unremarkable except as noted in HPI and below <Janneth Rose APRN - Last Filed: 05/03/25 03:47> [facility] Past Medical History Medical History: Medical History Chronic lower back pain Chronic mid back pain Patient reports bulging discs Essential hypertension Continuous tobacco abuse Obesity (BMI 30.0-34.9) <Janneth Rose APRN - Last Filed: 05/03/25 03:47> Surgical History Surgical History: Surgical History No pertinent past surgical history <Janneth Rose APRN - Last Filed: 05/03/25 03:47> Family History Family History: Family History Father Sudden cardiac , Onset Age: 33 Mother Alcoholic cirrhosis <Janneth Rose APRN - Last Filed: 05/03/25 03:47> Social History Social History: Social History Years smoked: 15 Smoking status: Current every day smoker Tobacco type: e-cigarettes/vaping Alcohol intake: never Substance use: former Substance use type: marijuana Do You Feel Safe in your Home?: Yes Lack of Transportation: No Lack of Food: Never True Current Housing: I Have Housing Concerned About Future Housing: No Difficulty Paying Gas/Electric Bills: No Difficulty Paying for Meds: No Currently Unemployed: No Education: High School Diploma/GED Difficulty w/ Childcare or Family Care: No Spiritual care concerns: No <Janneth Rose APRN - Last Filed: 05/03/25 03:47> Exam Narrative: GENERAL: Ill appearing, obese, non-toxic, in mild distress. HEAD: Normocephalic, atraumatic. NECK: Supple. No adenopathy, no masses. RESPIRATORY: Airway patent, respirations nonlabored. Clear to auscultation bilaterally, no rales, rhonchi, wheezing. CARDIOVASCULAR: Regular rate and rhythm without murmurs, rubs, or gallops. Peripheral pulses 2+ and equal bilaterally. ABDOMINAL: Soft, generalized tenderness, mildly distended, no hepatosplenomegaly. Normoactive BS. MUSCULOSKELETAL: Moves all extremities. Strength/ROM intact without gross deformities. SKIN: Warm, dry, normal color. No rashes. NEURO: A&O X3. Speech clear. Cranial nerves II-XII intact. No ataxic movements. PSYCHIATRIC: Appropriate mood and affect. Normal interaction. <Janneth Rose APRN - Last Filed: 05/03/25 03:47> Course FURNITURE LUMBER PRODUCTION WORKER/PA Physician Supervision For this patient encounter, I reviewed the FURNITURE LUMBER PRODUCTION WORKER or PA documentation, treatment plan, and medical decision making; and I had [id number] time with this patient. <Maxx Oneill MD - Last Filed: 05/03/25 05:34> Vital Signs Vital signs: Vital Signs Temperature 36.3 C L 05/02/25 21:37 Pulse Rate 97 05/02/25 21:37 Respiratory Rate 20 05/02/25 21:37 Blood Pressure 147/108 H 05/02/25 21:37 Pulse Oximetry 98 05/02/25 21:37 Temperature 36.3 C L 05/02/25 21:37 Pulse Rate 61 05/03/25 02:01 Respiratory Rate 21 H 05/03/25 02:01 Blood Pressure 154/89 H 05/03/25 02:01 Pulse Oximetry 96 05/03/25 02:01 <Janneth Rose APRN - Last Filed: 05/03/25 03:47> Vital Signs Temperature 36.3 C L 05/02/25 21:37 Pulse Rate 97 05/02/25 21:37 Respiratory Rate 20 05/02/25 21:37 Blood Pressure 147/108 H 05/02/25 21:37 Pulse Oximetry 98 05/02/25 21:37 Temperature 36.3 C L 05/02/25 21:37 Pulse Rate 61 05/03/25 02:01 Respiratory Rate 21 H 05/03/25 02:01 Blood Pressure 154/89 H 05/03/25 02:01 Pulse Oximetry 96 05/03/25 02:01 <Maxx Oneill MD - Last Filed: 05/03/25 05:34> MDM - Abdominal Pain MDM Narrative Medical decision making narrative: Patient is a 35-year-old male who presents to the ER with abdominal pain that started yesterday. He reports he has had nausea, urinary burning/urgency, and intermittent bright red rectal bleeding. Patient reports he has been taking ibuprofen as needed for pain but it has not been helping. He reports his last bowel movement was yesterday and it was normal for him. Patient endorses a history of chronic back pain. He denies any recent alcohol use but endorses daily marijuana use. Patient reports he has a history of abdominal pain but diverticulitis has been ruled out in the past. He denies any recent fevers, chest pain, or constipation. Labs Ordered: CBC, CMP, UDS, UA, GC chlamydia, Trichomonas, lipase Imaging Ordered: CT abdomen pelvis Medications Ordered: 1 L normal saline IV bolus, Reglan IV, Benadryl IV, Haldol IM, Toradol IV Results: Patient's CT scan indicates no evidence her bowel obstruction. Subtle mucosal thickening involving several small bowel loops in the right lower quadrant is less prominent than on the previous examination dated 08/14/2021, but subtle recurrent distal enteritis may be present. Trace free fluid in the dependent pelvis is considered abnormal in a male patient. Suspect reactive changes from the small bowel process. Mild stool burden. Mucosal prominence of the predominantly decompressed proximal sigmoid colon is presumably related to under distension. Sigmoid colitis is considered less likely. Diverticulosis without definitive diverticulitis. No pneumoperitoneum. The liver, gallbladder, pancreas, spleen, adrenal glands, and kidneys demonstrate no significant abnormality. The bladder is unremarkable. Incidental normal caliber appendix. Diagnosis: Gastroenteritis, cannabinoid hyperemesis, urinary tract infection Patient Education/Shared MDM: Results of lab work and imaging shared with patient. He endorses mild improvement of symptoms following medication administration. Patient reports he does not believe he has an STD but would like to be tested while he is in the ER. He will be given a dose of Toradol here in the ER to help relieve his abdominal pain symptoms. [id number] signed out to Dr. Oneill pending STD results. <Janneth Rose, TERMINAL BLOCK ASSEMBLER - Last Filed: 05/03/25 03:47> Differential Diagnosis Differential diagnosis: Likely abdominal pain, acute appendicitis, constipation, diverticulitis, gastroenteritis, pancreatitis and other (Cannabinoid hyperemesis, urinary tract infection) <Janneth Rose TERMINAL BLOCK ASSEMBLER - Last Filed: 05/03/25 03:47> Lab Data Attestation: I reviewed the patient's lab results. <Janneth Rose TERMINAL BLOCK ASSEMBLER - Last Filed: 05/03/25 03:47> Result diagrams: 05/02/25 23:53 05/02/25 23:53 <Janneth Rose TERMINAL BLOCK ASSEMBLER - Last Filed: 05/03/25 03:47> Labs: Lab Results 05/02/25 05/03/25 05/03/25 Range/Units 23:53 01:55 03:56 WBC 7.6 (4.5-10.0) K/mm3 RBC 4.89 (4.6-6.20) M/mm3 Hgb 14.7 (14.0-18.0) g/dL Hct 43.2 (42.0-52.0) % MCV 88.3 (80-100) fl MCH 30.1 (26-34) pg MCHC 34.0 (32-36) g/dl RDW 13.0 (11.5-14.5) % Plt Count 224 (150-375) k/mm3 MPV 10.4 (7.4-10.4) fl Immature Gran % (Auto) 0.3 (0-0.5) % Neut % (Auto) 53.1 (45.5-73.1) % Lymph % (Auto) 34.8 (18.3-44.2) % [place] % (Auto) 8.7 H (2.6-8.5) % Eos % (Auto) 2.6 (0-4.4) % Baso % (Auto) 0.5 (0.2-1.2) % Lymph # (Auto) 2.63 (0.9-3.2) K/mm3 [place] # (Auto) 0.7 H (0.1-0.6) K/mm3 Eos # (Auto) 0.2 (0-0.3) K/mm3 Baso # (Auto) 0.0 (0.0-0.1) K/mm3 Abs Immat Gran (auto) 0.02 (0.00-0.031) K/mm3 Absolute Neuts (auto) 4.0 (1.3-6.7) K/mm3 Absolute Nucleated RBC 0.000 (0.0-0.012) K/mm3 Nucleated RBC % 0.0 (0.0-0.2) % Sodium 140 (137-145) mmol/L Potassium 4.0 (3.4-5.0) mmol/L Chloride 108 H (98-107) mmol/L Carbon Dioxide 26 (22-30) mmol/L Anion Gap 6 (4-12) mmol/L BUN 14 (9-20) mg/dL Creatinine 0.99 (0.7-1.3) mg/dL Estim Creat Clear Calc 128 ml/min Estimated GFR > 60 (59 - ) Glucose 104 (65-110) mg/dL Calcium 8.6 (8.4-10.2) mg/dL Total Bilirubin 0.9 (0.2-1.3) mg/dL AST 34 (17-59) U/L ALT 55 H (6-50) U/L Alkaline Phosphatase 79 (38-126) U/L Total Protein 6.7 (6.3-8.2) g/dL Albumin 3.9 (3.5-5.1) g/dL Lipase 193 (23-300) U/L Urine Color Yellow (Yellow) Urine Appearance Turbid H (Clear) Urine pH >=9.0 H (5.0-9.0) Ur Specific [place] > 1.045 H (1.001-1.035) Urine Protein Negative (Negative) mg/dL Urine Glucose (UA) Negative (Negative) mg/dL Urine Ketones Negative (Negative) mg/dL Ur Blood (Man) Negative (Negative) Urine Nitrate Negative (Negative) Urine Bilirubin Negative (Negative) Urine Urobilinogen 1.0 (<2.0) mg/dL Leukocyte Esterase Rfl 1+ H (Negative) TIM/UL Urine RBC 0-2 (0-2) /hpf Urine WBC 11-20 H (0-3) /hpf Ur Squamous Epith Cells Occasional (Few) /hpf Urine Bacteria None seen /hpf Urine Casts 0-2 Urine Opiates Screen Negative (Negative) Urine Methadone Screen Negative (Negative) Ur Barbiturates Screen Negative (Negative) Ur Phencyclidine Scrn Negative (Negative) Ur Amphetamine Screen Negative (Negative) U Benzodiazepines Scrn Negative (Negative) Urine Cocaine Screen Negative (Negative) U Cannabinoids Screen Positive A (Negative) C. trachomatis (PCR) Not detected (NOT DETECTE) N. gonorrhoeae (PCR) Not detected (NOT DETECTE) T. vaginalis (PCR) Not detected (NOT DETECTE) <Janneth Rose, TERMINAL BLOCK ASSEMBLER - Last Filed: 05/03/25 03:47> Lab Results 05/02/25 05/03/25 05/03/25 Range/Units 23:53 01:55 03:56 WBC 7.6 (4.5-10.0) K/mm3 RBC 4.89 (4.6-6.20) M/mm3 Hgb 14.7 (14.0-18.0) g/dL Hct 43.2 (42.0-52.0) % MCV 88.3 (80-100) fl MCH 30.1 (26-34) pg MCHC 34.0 (32-36) g/dl RDW 13.0 (11.5-14.5) % Plt Count 224 (150-375) k/mm3 MPV 10.4 (7.4-10.4) fl Immature Gran % (Auto) 0.3 (0-0.5) % Neut % (Auto) 53.1 (45.5-73.1) % Lymph % (Auto) 34.8 (18.3-44.2) % [place] % (Auto) 8.7 H (2.6-8.5) % Eos % (Auto) 2.6 (0-4.4) % Baso % (Auto) 0.5 (0.2-1.2) % Lymph # (Auto) 2.63 (0.9-3.2) K/mm3 [place] # (Auto) 0.7 H (0.1-0.6) K/mm3 Eos # (Auto) 0.2 (0-0.3) K/mm3 Baso # (Auto) 0.0 (0.0-0.1) K/mm3 Abs Immat Gran (auto) 0.02 (0.00-0.031) K/mm3 Absolute Neuts (auto) 4.0 (1.3-6.7) K/mm3 Absolute Nucleated RBC 0.000 (0.0-0.012) K/mm3 Nucleated RBC % 0.0 (0.0-0.2) % Sodium 140 (137-145) mmol/L Potassium 4.0 (3.4-5.0) mmol/L Chloride 108 H (98-107) mmol/L Carbon Dioxide 26 (22-30) mmol/L Anion Gap 6 (4-12) mmol/L BUN 14 (9-20) mg/dL Creatinine 0.99 (0.7-1.3) mg/dL Estim Creat Clear Calc 128 ml/min Estimated GFR > 60 (59 - ) Glucose 104 (65-110) mg/dL Calcium 8.6 (8.4-10.2) mg/dL Total Bilirubin 0.9 (0.2-1.3) mg/dL AST 34 (17-59) U/L ALT 55 H (6-50) U/L Alkaline Phosphatase 79 (38-126) U/L Total Protein 6.7 (6.3-8.2) g/dL Albumin 3.9 (3.5-5.1) g/dL Lipase 193 (23-300) U/L Urine Color Yellow (Yellow) Urine Appearance Turbid H (Clear) Urine pH >=9.0 H (5.0-9.0) Ur Specific [place] > 1.045 H (1.001-1.035) Urine Protein Negative (Negative) mg/dL Urine Glucose (UA) Negative (Negative) mg/dL Urine Ketones Negative (Negative) mg/dL Ur Blood (Man) Negative (Negative) Urine Nitrate Negative (Negative) Urine Bilirubin Negative (Negative) Urine Urobilinogen 1.0 (<2.0) mg/dL Leukocyte Esterase Rfl 1+ H (Negative) TIM/UL Urine RBC 0-2 (0-2) /hpf Urine WBC 11-20 H (0-3) /hpf Ur Squamous Epith Cells Occasional (Few) /hpf Urine Bacteria None seen /hpf Urine Casts 0-2 Urine Opiates Screen Negative (Negative) Urine Methadone Screen Negative (Negative) Ur Barbiturates Screen Negative (Negative) Ur Phencyclidine Scrn Negative (Negative) Ur Amphetamine Screen Negative (Negative) U Benzodiazepines Scrn Negative (Negative) Urine Cocaine Screen Negative (Negative) U Cannabinoids Screen Positive A (Negative) C. trachomatis (PCR) Not detected (NOT DETECTE) N. gonorrhoeae (PCR) Not detected (NOT DETECTE) T. vaginalis (PCR) Not detected (NOT DETECTE) <Maxx Oneill MD - Last Filed: 05/03/25 05:34> Imaging Data Attestation: I personally reviewed and interpreted this imaging study as follows: <Janneth Rose, KARENA - Last Filed: 05/03/25 03:47> Radiologist's impression: Patient's CT scan indicates no evidence her bowel obstruction. Subtle mucosal thickening involving several small bowel loops in the right lower quadrant is less prominent than on the previous examination dated 08/14/2021, but subtle recurrent distal enteritis may be present. Trace free fluid in the dependent pelvis is considered abnormal in a male patient. Suspect reactive changes from the small bowel process. Mild stool burden. Mucosal prominence of the predominantly decompressed proximal sigmoid colon is presumably related to under distension. Sigmoid colitis is considered less likely. Diverticulosis without definitive diverticulitis. No pneumoperitoneum. The liver, gallbladder, pancreas, spleen, adrenal glands, and kidneys demonstrate no significant abnormality. The bladder is unremarkable. Incidental normal caliber appendix. <Janneth Rose APRN - Last Filed: 05/03/25 03:47> Discharge Plan Discharge Clinical Impression: Cannabinoid hyperemesis syndrome, Gastroenteritis, Urinary tract infection <Janneth Rose APRN - Last Filed: 05/03/25 03:47> Patient Disposition: Home <Janneth Rose APRN - Last Filed: 05/03/25 03:47> Condition: Stable <Janneth Rose APRN - Last Filed: 05/03/25 03:47> Instructions: Antibiotic Form <Janneth Rose APRN - Last Filed: 05/03/25 03:47> Patient Language: Armenian <Janneth Rose APRN - Last Filed: 05/03/25 03:47> Prescriptions: New cephalexin 500 mg capsule 500 mg PO Q12H 7 Days Qty: 14 0RF No Action sildenafil 25 mg tablet 25 mg PO DAILY PRN (Reason: sexual activity) Qty: 30 5RF Rx Instructions: administer 30 minutes to 4 hours before activity albuterol sulfate 90 mcg/actuation HFA aerosol inhaler See Rx Instructions .ROUTE .COMPLEX Qty: 6.7 3RF Dose Instruction: 1 INHALE EVERY 4 HOURS NEEDED FOR SHORTNESS OF BREATH OR WHEEZING Rx Instructions: 1 INHALE EVERY 4 HOURS NEEDED FOR SHORTNESS OF BREATH OR WHEEZING bupropion HCl [Wellbutrin SR] 150 mg tablet sustained-release 12 hr 150 mg PO BID 30 Days Qty: 60 2RF buspirone 5 mg tablet See Rx Instructions .ROUTE .COMPLEX Qty: 180 1RF Dose Instruction: TAKE 1 TABLET BY MOUTH TWICE A DAY FOR 30 DAYS Rx Instructions: TAKE 1 TABLET BY MOUTH TWICE A DAY FOR 30 DAYS <Janneth Rose APRN - Last Filed: 05/03/25 03:47> Follow-up/Referrals: Quinten Locke DO [Primary Care Provider, Family Practice] <Janneth Rose, TERMINAL BLOCK ASSEMBLER - Last Filed: 05/03/25 03:47>
[2025-05-03 00:03] LABS: Hematocrit 43.2 % (42.0-52.0); Hemoglobin 14.7 g/dL (14.0-18.0); Immature Granulocyte Percent A 0.3 % (0-0.5); Lymphocytes Absolute Auto 2.63 K/mm3 (0.9-3.2); Mean Corpuscular HGB Conc 34.0 g/dl (32-36); Mean Corpuscular Hemoglobin 30.1 pg (26-34); Mean Corpuscular Volume 88.3 fl (80-100); Nucleated Red Blood Cells Absolute Auto 0.000 K/mm3 (0.0-0.012); Nucleated Red Blood Cells Perc 0.0 % (0.0-0.2); Platelet Count Result 224 k/mm3 (150-375); Red Blood Count 4.89 M/mm3 (4.6-6.20); White Blood Count 7.6 K/mm3 (4.5-10.0)
[2025-05-03 00:11] LABS: Alanine Aminotransferase 55 U/L (6-50); Albumin Level 3.9 g/dL (3.5-5.1); Alkaline Phosphatase 79 U/L (38-126); Anion Gap 6 mmol/L (4-12); Aspartate Amino Transferase 34 U/L (17-59); Bilirubin,Total 0.9 mg/dL (0.2-1.3); Blood Urea Nitrogen 14 mg/dL (9-20); Calcium 8.6 mg/dL (8.4-10.2); Carbon Dioxide 26 mmol/L (22-30); Chloride 108 mmol/L (98-107); Estimated CRCL calculation 128 ml/min; Estimated Glomerular Filt Rate > 60; Glucose 104 mg/dL (65-110); Lipase 193 U/L (23-300); Potassium 4.0 mmol/L (3.4-5.0); Sodium 140 mmol/L (137-145); Total Protein 6.7 g/dL (6.3-8.2)
[2025-05-03] MEDS: SODIUM CHLORIDE 0.9% IV 1,000 ML 999 ML IV CONT (00:11)
[2025-05-03] MEDS: HALOPERIDOL LACTATE 5 MG/ML VIAL IM (00:12)
[2025-05-03] MEDS: METOCLOPRAMIDE HCL INJ 10 MG/2 ML VIAL IV PUSH (01:54)
[2025-05-03 02:01] VITALS: BP 154/89; PULSE 61; RESP 21; O2SAT 96
[2025-05-03 02:06] LABS: Add Urine Microscopic? YES; Appearance Urine Turbid (Clear); Glucose Urine UA Negative (Negative); Leukocyte Esterase Ur 1+ LEU/UL (Negative); Nitrate Urine Negative (Negative); Non Pathogenic Casts 0-2; Specific Grav Ur > 1.045 (1.001-1.035)
[2025-05-03 02:20] LABS: Cannabinoid Screen Urine Positive (Negative)
[2025-05-03] MEDS: KETOROLAC 15 MG/ML VIAL (*BKC) IV PUSH (03:58)
[2025-05-03 05:05] LABS: Trichomonas Vag PCR NOT DETECTED (NOT DETECTE)
--- OUTSIDE RECORDS SUMMARY | 2025-05-03 05:07 | XMS_ITS | Clinical Summary ---
Author Organization [facility] Address [address] [place] [id number] Care Team Providers Care Ammunition Components Inspector Name Role Phone Quinten Locke DO Primary Care Provider [phone] Social History Tobacco Use Types Packs/Day Years Used Date Smoking Tobacco: Never Assessed Sex and Gender Information Value Date Recorded Sex Assigned at Male 10/12/2024 9:30 AM CDT Legal Sex Male 8:16 PM CDT Gender Identity Not on file Sexual Orientation Not on file Plan of Treatment Health Maintenance Due Date Last Done Comments Annual Physical 1994 Hepatitis C 2009 HPV Vaccines (1 - 3-dose SCDM series) 2018 COVID-19 Vaccine ( season) 2025 Influenza Adult (#1) 2025 DTaP, Tdap and Td Vaccines (7 - Td or Tdap) 06/15/2025 06/15/2015, 08/26/1996, 05/07/1993, Additional history exists Hepatitis B Vaccines Completed 10/14/2001, 04/22/1999, 03/19/1999 Hepatitis A Vaccines Aged Out No long er eligible based on patient's age to complete this topic Meningococcal B Vaccine Aged Out No l onger eligible based on patient's age to complete this topic Meningococcal Vaccine Aged Out No sharon zohaib eligible based on patient's age to complete this topic Pneumococcal Vaccine: Pediatrics (0 to 5 Years) and At-Risk Patients (6 to 49 Years) Aged Out No longer eligible based on patient's age to complete this topic RSV Immunizations Under 20 Months Aged Out No longer eligible based on patient's age to complete this topic Insurance [facility] [address] Care Teams Ammunition Components Inspector Relationship Specialty Start Date End Date Quinten Locke DO [address] [place] [address] PCP - General FAMILY PRACTICE 10/12/24
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
[2025-05-03 05:50] VITALS: BP 149/86; PULSE 63; RESP 19; O2SAT 98
== END 2025-05-03 05:52 | disposition home or self-care (01) ==
PROVIDERS: Emergency Provider Registered Nurse; PCP Family Medicine
DX: K52.9 Noninfective gastroenteritis and colitis, unspecified (principal); R11.16 Cannabis hyperemesis syndrome; F12.988 Cannabis use, unspecified with other cannabis-induced disorder; I10 Essential (primary) hypertension; E66.9 Obesity, unspecified; Z68.37 Body mass index [BMI] 37.0-37.9, adult; F17.290 Nicotine dependence, other tobacco product, uncomplicated
CPT/HCPCS: 36415; 74177; 80053; 80307; 81001; 83690; 85025; 87086; 87491; 87591; 87661; 96361; 96372; 96374; 96375; 99284; J1200; J1630; J1885; J2765; J7030; Q9967

== ENCOUNTER 2025-05-31 09:58 | Outpatient (CLI) | payer OTHER, SELFPAY ==
--- NOTE | ~2025-05-31 | US_ITS ---
EXAMINATION: US abdomen limited DATE: 05/31/2025 10:43 INDICATION: Right upper quadrant pain TECHNIQUE: Multiple grayscale and Doppler ultrasound images of the abdomen were obtained. COMPARISON: None FINDINGS: No cholelithiasis or pericholecystic fluid seen. The gallbladder wall thickness is borderline measuring 3 mm. Common bile duct: 5 mm No reported sonographic Katz sign. Pancreas is incompletely visualized. The right kidney is also somewhat poorly visualized but appears normal. No free fluid seen. Mildly increased echotexture throughout the liver with no obvious mass seen in the liver. IMPRESSION: 1. No cholelithiasis. By measurement, the gallbladder wall is borderline thickened. No pericholecystic fluid or biliary ductal dilatation. 2. Incomplete visualization of the liver and pancreas. Fatty liver changes noted. 3. Normal-appearing right kidney. Reviewed, dictated and finalized at location A. E COACH IMPRESSION: 1. No cholelithiasis. By measurement, the gallbladder wall is borderline thicke barbi. No pericholecystic fluid or biliary ductal dilatation. 2. Incomplete visualization of the liver and pancreas. Fatty liver changes note d. 3. Normal-appearing right kidney.
== END 2025-05-31 09:59 | disposition home or self-care (01) ==
PROVIDERS: PCP Family Medicine; Visit Provider Family Medicine
DX: R10.11 Right upper quadrant pain (principal)
CPT/HCPCS: 76705